=== PATIENT | male | born 1935 | race Caucasian/White ===

== ENCOUNTER 2019-11-27 19:42 | Inpatient (IN) | payer MEDICARE ==
[~2019-11-27] VITALS: Ht 182.9 cm; Wt 88.0 kg
[~2019-11-27 19:42] MED LIST: ASPIR 8181 MG PO; ASPIRIN325 PO; COZAAR100 MG PO; OXYBUTYNIN 5 MG5 M2 PO; PROPAFENONE 15150 MG PO; PROPRANOLOL 20M20 M1 PO; RYTHMOL SR225 MG PO; SIMVASTATIN40 MG PO; SORINE 80 MG TA80 M1 PO
[2019-11-27 19:47] VITALS: BP 120/87
[2019-11-27] MEDS ORDERED: TOPROL XL25 MG PO (20:56)
[2019-11-27] MEDS ORDERED: LASIX 40 MG TAB40 MG PO (20:57)
[2019-11-27] MEDS ORDERED: XARELTO20 MG PO (20:57)
[2019-11-27 21:03] LABS: ABSOLUTE LYMPHOCYTES 0.4 thou/uL (0.8-5.3); ABSOLUTE MONOCYTES 0.3 thou/uL (0.0-1.2); ABSOLUTE NEUTROPHILS 2.1 thou/uL (1.6-8.1); BASOPHILS 0.6 %; HEMATOCRIT 42.3 % (42.0-52.0); LYMPHOCYTES 15.7 %; MCH 31.4 pg (26.0-34.0); MCHC 35.6 g/dL (28.0-37.0); MCV 88.3 fL (80.0-100.0); MONOCYTES 9.3 %; MPV 7.6 fl. (7.2-11.1); NUCLEATED RBCS 0 /100WBC; PLATELET COUNT* 81 thou/uL (150-400); POLYS 74.4 %; RBC 4.79 mil/uL (4.50-6.00); RDW-CV 14.9 % (10.5-14.5); WBC 2.8 thou/uL (4.0-11.0)
[2019-11-27 21:15] LABS: APTT 38.8 Seconds (25.0-31.3); INR 1.3; PROTIME 13.4 Seconds (9.20-11.50)
[2019-11-27 21:19] LABS: URINE BILIRUBIN NEGATIVE (Negative); URINE BLOOD 1+ (Negative); URINE COLOR YELLOW; URINE GLUCOSE-RANDOM NEGATIVE (Negative); URINE KETONES TRACE (Negative); URINE LEUKOCYTES-REFLEX NEGATIVE (Negative); URINE NITRITE-REFLEX NEGATIVE (Negative); URINE PROTEIN 2+ (Negative); URINE SPECIFIC GRAVITY >= 1.030 (1.005-1.030)
[2019-11-27 21:19] LABS: CALCIUM 8.1 mg/dL (8.5-10.1); CREATININE 1.6 mg/dL (0.6-1.3); POTASSIUM 3.6 mmol/L (3.5-5.1)
[2019-11-27 21:21] LABS: URINE CLARITY HAZY
[2019-11-27 21:27] LABS: BACTERIA-REFLEX None Seen /HPF (None Seen); CASTS None Seen /LPF (None Seen); CRYSTALS None Seen /LPF (None Seen); MUCUS 4-6 Moderate strn/LPF (None Seen); SQUAMOUS 0-3 Few /LPF (0-3); URINE RBC 0-2 Rare /HPF (0-2); URINE WBC-REFLEX None Seen /HPF (0-5)
[2019-11-27 21:31] LABS: ALBUMIN 3.5 g/dL (3.4-5.0); TOTAL BILIRUBIN 1.2 mg/dL (<0.1-1.0); TOTAL PROTEIN 6.9 g/dL (6.4-8.2)
[2019-11-27 23:48] VITALS: BP 121/70
[2019-11-28] VITALS (7 sets, daily range): BP systolic 102–139; BP diastolic 55–77
--- NOTE | 2019-11-28 09:49 | NUR ---
Interview with patient and his son Carlos at bedside. Pt lives at home alone. children check in on him but neighbor Donnell and his Ria assist patient routinely. Donnell drives patient to appointment, etc. Ria meal preps and delivers food to pt in containers. Pt uses electric scooter to get around longer distances. Has riding moshgiach and elect moshgiach that he care for his yard with. Donnell and Ria live few houses down from patient so if he needs anything they quickly respond. Uses shower with walker, has shower chair that he uses and hand held shower wand.
--- NOTE | 2019-11-28 16:06 | EKG ---
[place] [address] ELECTROCARDIOGRAM REPORT Name: FELIX PIÑA Room: [address] IN [facility].#: [id number] Admission: 11/27/19 Attend Phys: Osman Marvin, Discharge: Date of : 37 Date of Service: 11/27/191944 Report #: [id number] THIS REPORT FOR: //name// [facility] ED Test Date: 2019-11-27 Test Time: 19:45:53 Pat Name: FELIX PIÑA Department: Room: [facility] Gender: M Charge Weigher: JIMBO : 1935 Requested By: Danica Hill Order Number: [id number] MD: Levon Scott Measurements Intervals [place] Rate: 103 P: OR: QRS: -7 QRSD: 82 T: -4 QT: 333 QTc: 436 Interpretive Statements Atrial fibrillation Anteroseptal infarct, old possible Borderline repolarization abnormality Artifact in lead(s) I,III,aVL Compared to ECG 06/03/2016 15:32:15 Myocardial infarct finding now present Sinus bradycardia no longer present Left ventricular hypertrophy no longer present Electronically Signed On 11-28-2019 16:06:36 CDT by Levon Scott [email or web address] <ELECTRONICALLY SIGNED> By: Levon Scott MD, [facility] 11/28/19 1606 44 44 Levon Scott MD, [facility] /EPI
--- NOTE | 2019-11-28 16:10 | EKG ---
[place] [address] ELECTROCARDIOGRAM REPORT Name: FELIX PIÑA Room: [address] IN [facility].#: [id number] Admission: 11/27/19 Attend Phys: Osman Marvin, Discharge: Date of : 37 Date of Service: 11/27/19 2159 Report #: [id number] THIS REPORT FOR: //name// [facility] ED Test Date: 2019-11-27 Test Time: 21:59:53 Pat Name: FELIX PIÑA Department: Room: [facility] Gender: M Smasher: JIMBO : 1935 Requested By: Danica Hill Order Number: [id number] MD: Levon Scott Measurements Intervals [place] Rate: 76 P: CO: QRS: 17 QRSD: 78 T: -2 QT: 363 QTc: 409 Interpretive Statements Atrial fibrillation Low voltage, extremity leads Minimal ST depression, inferior leads Compared to ECG 11/27/2019 19:45:53 Low QRS voltage now present ST (T wave) deviation now present Ventricular premature complex(es) no longer present Myocardial infarct finding no longer present Electronically Signed On 11-28-2019 16:10:21 CDT by Levon Scott [email or web address] <ELECTRONICALLY SIGNED> By: Levon Scott MD, [facility] 11/28/19 1610 58 58 Levon Scott MD, [facility] /EPI
--- NOTE | 2019-11-28 16:46 | 2DMMODE ---
[place] [address] 2 D/M-MODE ECHOCARDIOGRAM Name: FELIX PIÑA Room: [address] IN [facility]#: [id number] Admission: 11/27/19 Attend Phys: Osman Marvin, Discharge: Date of : 37 Date of Service: 11/28/19 1646 Report #: [id number] THIS REPORT FOR: cc: Dylan Kern,Hakan Walker MD [facility] ~ APPROVED REPORT Study performed: 11/28/2019 14:55:52 EXAM: Comprehensive 2D, Doppler, and color-flow Echocardiogram Patient Location: In-Patient Room #: 229 Status: routine BSA: 2.10 HR: 78 bpm BP: 125/62 mmHg Rhythm: Atrial Fibrillation Other Information Study Quality: Good Indications Atrial Fibrillation 2D Dimensions IVSd: 13.98 (7-11mm) LVOT Diam: 20.33 (18-24mm) LVDd: 37.21 mm PWd: 9.77 (7-11mm) Ascending Ao: 34.07 (22-36mm) LVDs: 25.54 (25-40mm) Aortic Root: 36.95 mm Volumes Left Atrial Volume (Systole) LA ESV Index: 26.00 mL/m2 Aortic Valve AoV Peak Remi.: 0.90 m/s AO Peak Gr.: 3.21 mmHg LVOT Max P.18 mmHg AO Mean Gr.: 1.99 mmHg LVOT Mean P.08 mmHg LVOT Max V: 0.74 m/s AO V2 VTI: 16.00 cm LVOT Mean V: 0.48 m/s DARREN (VTI): 2.94 cm2 LVOT V1 VTI: 14.50 [place] [address] 2 D/M-MODE ECHOCARDIOGRAM Name: FELIX PIÑA Room: [address]#: [id number] Admission: 11/27/19 Attend Phys: Osman Marvin, Discharge: Date of : 37 Date of Service: 11/28/19 1646 Report #: [id number] TDI Medial E' Remi.: 0.11 m/s Lateral E' Remi.: 0.13 m/s Pulmonary Valve PV Peak Remi.: 0.76 m/s PV Peak Gr.: 2.30 mmHg Tricuspid Valve RAP Estimate: 5.00 mmHg TR Peak Gr.: 18.72 mmHg RVSP: 23.00 mmHg PA Pressure: 23.00 mmHg Left Ventricle The left ventricle is normal size. There is normal LV segmental wall motion. There is normal left ventricular wall thickness. Left ventricular systolic function is normal. LVEF is 60-65%. This study is not technically sufficient to allow evaluation of the LV diastolic function due to atrial fibrillation. Right Ventricle The right ventricle is normal size. The right ventricular systolic function is normal. Atria Left atrium is mildly dilated. The right atrium size is normal. Aortic Valve Mild aortic valve sclerosis. Mild aortic regurgitation. There is no aortic valvular stenosis. Mitral Valve The mitral valve is normal in structure. Trace mitral regurgitation. No evidence of mitral valve stenosis. Tricuspid Valve The tricuspid valve is normal in structure. Trace tricuspid regurgitation. No pulmonary hypertension. Pulmonic Valve The pulmonary valve is normal in structure. There is no pulmonic valvular regurgitation. Great Vessels The aortic root is normal in size. IVC [place] [address] 2 D/M-MODE ECHOCARDIOGRAM Name: FELIX PIÑA Room: [address] IN [facility]#: [id number] Admission: 11/27/19 Attend Phys: Osman Marvin, Discharge: Date of : 37 Date of Service: 11/28/19 1646 Report #: [id number] Pericardium There is no pericardial effusion. <Conclusion> The left ventricle is normal size. There is normal left ventricular wall thickness. Left ventricular systolic function is normal. LVEF is 60-65%. Left atrium is mildly dilated. Mild aortic valve sclerosis. Mild aortic regurgitation. There is no aortic valvular stenosis. Trace mitral regurgitation. Trace tricuspid regurgitation. No pulmonary hypertension. <ELECTRONICALLY SIGNED> By: Hakan Barker MD, FACC 11/28/191645 45 45 Hakan Barker MD, FAC /INF
[2019-11-29] VITALS: BP 131/68
[2019-11-29 04:00] VITALS: BP 124/62
--- NOTE | 2019-11-29 05:30 | NUR ---
ASSUMED PT CARE AT APPROX 1930. PT IS AWAKE, ORIENTED TO SELF AND SOMETIMES PLACE-FORGETFUL AND CONFUSED AT TIMES. 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 PT DENIES PAIN/DISCOMFORT. Tmax 102.0-TYLENOL GIVEN PER MAY. LATEST T=97.8. PT DENIES PAIN/DISCOMFORT. CALL LIGHT WITHIN REACH. HOURLY ROUNDING DONE FOR PT SAFETY. HIGH FALL PRECAUTIONS IN PLACE.
[2019-11-29 08:30] VITALS: BP 147/48
[2019-11-29 15:18] LABS: ALBUMIN 2.8 g/dL (3.4-5.0); CALCIUM 8.1 mg/dL (8.5-10.1); CREATININE 1.3 mg/dL (0.6-1.3); POTASSIUM 3.8 mmol/L (3.5-5.1); TOTAL BILIRUBIN 0.8 mg/dL (<0.1-1.0); TOTAL PROTEIN 6.2 g/dL (6.4-8.2)
[2019-11-29 15:20] LABS: ABSOLUTE LYMPHOCYTES 0.5 thou/uL (0.8-5.3); ABSOLUTE MONOCYTES 0.3 thou/uL (0.0-1.2); ABSOLUTE NEUTROPHILS 1.8 thou/uL (1.6-8.1); BASOPHILS 0.2 %; EOSINOPHILS 0.7 %; HEMATOCRIT 40.1 % (42.0-52.0); LYMPHOCYTES 19.2 %; MCH 30.8 pg (26.0-34.0); MCHC 34.8 g/dL (28.0-37.0); MCV 88.3 fL (80.0-100.0); MONOCYTES 11.3 %; MPV 8.7 fl. (7.2-11.1); NUCLEATED RBCS 0 /100WBC; PLATELET COUNT* 97 thou/uL (150-400); POLYS 68.6 %; RBC 4.54 mil/uL (4.50-6.00); WBC 2.6 thou/uL (4.0-11.0)
[2019-11-29 16:00] VITALS: BP 130/68
--- NOTE | 2019-11-29 19:45 | NUR ---
pt has remained alert, oriented and cooperative with staff. no c/o or indication of pain or distress. up to commode with moderate assist. remains on monitor in afib. stable at time of this note
[2019-11-29 20:00] VITALS: BP 131/75
[2019-11-30] VITALS (8 sets, daily range): BP systolic 120–138; BP diastolic 70–78
--- NOTE | 2019-11-30 05:00 | NUR ---
ASSUMED PT CARE AT APPROX 1930 PT IS AWAKE, ORIENTED TO SELF AND PLACE-FORGETFUL AT TIMES. 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 PT DENIES PAIN/DISCOMFORT. PT IS NOT IN RESPIRATORY DISTRESS. NO ACUTE CHANGES THROUGHOUT THIS SHIFT. CALL LIGHT WITHIN REACH. HOURLY ROUNDING DONE FOR PT SAFETY. HIGH FALL PRECAUTIONS IN PLACE.
--- NOTE | 2019-11-30 12:58 | NUR ---
Pt states that he normally is able to ambulate 200+ feet with his walker, Pt plans to return home at dc, in agreement with HH. CM contacted [facility] to see if they can accept Pt. DC orders written. Await PT eval. Plan on later today.
[2019-11-30] MEDS ORDERED: VITAMIN D325 MCG PO (17:33)
[2019-11-30] MEDS ORDERED: CEFDINIR300 MG PO (17:34)
--- NOTE | 2019-11-30 20:33 | NUR ---
IV dc'd intact. Pt remains alert, oriented and cooperative with staff. Pt has tolerated diet. has had no c/o pain or distress. Regular nonlabored respirations. Monitor has remained atrial fibrillation with rate below 100 bpm. Per written instructions I have discharged patient. I have reviewed his discharge instructions with his dpoa Donnell. I reviewed medications, home health provider and services to be rendered. I reviewed documented provider of Dr Kern. Pt's dpoa states "He sees Janny Chang MD. I will call her tomorrow and set up a follow up appointment" I instructed pts dpoa to take discharge packet with him as reference for doctor. Pt assisted to wheelchair, taken to ER exit and assisted to dpoa's vehicle. Pt stable upon dismissal from 229
== END 2019-11-30 18:59 | disposition home health service (06) | DRG 682 ==
LOC: M.ERS 19:42 → M.TBA-ER 22:11 → M.2W 22:11
PROVIDERS: Internal Medicine; Personal Emergency Response Attendant; ADMIT Internal Medicine; ATTEND Internal Medicine
DX: N17.0 Acute kidney failure with tubular necrosis (principal); G93.41 Metabolic encephalopathy; R65.11 Systemic inflammatory response syndrome (SIRS) of non-infectious origin with acute organ dysfunction; E78.5 Hyperlipidemia, unspecified; I48.91 Unspecified atrial fibrillation; D70.9 Neutropenia, unspecified; F03.90 Unspecified dementia, unspecified severity, without behavioral disturbance, psychotic disturbance, mood disturbance, and anxiety; E86.0 Dehydration; I12.9 Hypertensive chronic kidney disease with stage 1 through stage 4 chronic kidney disease, or unspecified chronic kidney disease; D69.6 Thrombocytopenia, unspecified; Z60.2 Problems related to living alone; N18.9 Chronic kidney disease, unspecified; Z20.828 Contact with and (suspected) exposure to other viral communicable diseases; J22 Unspecified acute lower respiratory infection; I25.10 Atherosclerotic heart disease of native coronary artery without angina pectoris; Z79.82 Long term (current) use of aspirin; Z79.899 Other long term (current) drug therapy; Z86.73 Personal history of transient ischemic attack (TIA), and cerebral infarction without residual deficits; Z82.49 Family history of ischemic heart disease and other diseases of the circulatory system